=== PATIENT | male | born 1955 | race Caucasian/White ===

== ENCOUNTER 2016-09-19 20:16 | Emergency (ER) | payer BC ==
[~2016-09-19] VITALS: Ht 188 cm; Wt 118.8 kg
[~2016-09-19 20:16] MED LIST: ASPIRIN 81MG TA81 MG PO; ASPIRIN EC325 M1 PO; CLINORIL GENER200 MG PO; CRESTOR5 MG PO; CYCLOBENZAPRINE10 M1 PO; DIOVAN HCT 12.51 TAB PO; DOXAZOSIN MESYLA1 MG PO; DOXAZOSIN MESYLA2 MG PO; FLEXERIL10 MG PO; FLOMAX 0.4MG C0.4 MG PO; MEDROL 4MG. DOSE4 MG PO; MELOXICAM15 MG PO; NAPROSYN 500MG500 MG PO; NITROQUICK0.4 MG SL; PLAVIX75 MG PO; ROBAXIN-750750 MG PO; SIMVASTATIN80 MG PO; TOPROL XL 50MG50 MG PO
--- NOTE | 2016-09-19 21:05 | RADIOLOGY REPORT PS360 ---
CT HEAD WITHOUT CONTRAST CT BONE WINDOWS ORDERING PHYSICIAN : PATIENT AGE: 61 years GENDER: Male HISTORY: HIT IN HEAD PROCEDURE: Routine axial images head with brain & bone windows no contrast COMPARISON: None FINDINGS: No acute intracranial findings. No hemorrhage. No mass. No subdural nor extra-axial collection. Very Minor cerebral atrophy, age-appropriate. Ventricles and basal cisterns appear clear. Posterior fossa is unremarkable. CT Bone Windows: The skull is intact. No depressed skull fracture evident Mild/moderate Bilateral ethmoid sinusitis trace mucosal thickening sphenoid sinus. Maxillary sinuses not imaged Mastoid air cells and middle ear & IACs are satisfactory no significant findings. IMPRESSION: No acute intracranial findings.
--- NOTE | 2016-09-19 21:07 | Emergency Room Report ---
History of Present Illness Time Seen by [id number] Presenting Problem in Triage Pt arrived:Walked Presenting Problem:Patient was cutting trees yesterday. He states a limb hit him in the head and knocked him down. He denies loc, denies any n/v. Also states he has a "squeaking" sound in he left ear with every step he takes now. He went to [facility] and opted to drive back here for the CT of the head that they suggested. He lives here and loves this hospital. 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 N Clinical Suspician of Infection? N Mental Status: 1 - Regular (Normal Baseline) Sepsis Risk:Low Sepsis Risk Have you (or family members/close friends) recently traveled outside the [place]? N If Yes, where/when: Have you had exposure to infectious disease within the past month? N TB? Other? Specify: Source patient, RN notes reviewed, family, old records Exam Limitations no limitations Comment pt with acute head injury yesterday with no loc but has العلي and has buzzing to lt ear with talking and walking - no bleeding and no focal neuro sx Cardiac Chest Pain Chest pain indicative of cardiac No Timing/Duration this evening Severity moderate ALLERGIES Coded Allergies: No Known Allergies (09/19/16) Home Medications Active Scripts Methylprednisolone (Medrol Dose Frank) 4 MG PO UD #1 FRANK Prov: 03/17/15 Reported Medications Metoprolol Succinate Xl (Toprol Xl) 50 MG PO DAILY Clopidogrel Bisulfate (Plavix) 75 MG PO DAILY Hydrochlorothiazide/Valsarta (Diovan Hct 12.5 Mg-160 Mg) 1 TAB PO DAILY TAMSULOSIN HCL (Flomax 0.4MG) 0.4 MG PO QHS Doxazosin Mesylate 1 MG PO DAILY #45 Sulindac (Clinoril Generic 200MG Tab) 200 MG PO DAILY #180 Rosuvastatin Calcium (Crestor) 5 MG PO QHS #90 History Medical History General CAD? Yes Angina: Yes [place]: No Hypertension? Yes Hyperlipidemia? Yes CHF? No COPD? No Asthma? No Hernia? No Thyroid Problems? No Hypothyroidism? No CVA? No Seizures? No Diabetes? No UTI? No Stones? No GB Disease: No Hepatitis? No Cataracts? No Glaucoma? No MRSA? No TB? No Cancer? No Immunization Hx Ped.Immunizations UTD Yes DT/Tetanus 5-10 YRS Surgical Hx Previous Surgery?Y KNEE SHOULDER UMBILICAL HERNIA TRANSURETHRAL SURGERY HEART STENT 07/06 Family History Family Hx Diabetes No CAD Yes Hypertension Yes Hyperlipidemia Yes Cancer No TB No Social History Smoking Hx Smoker: Current Every Day Smoker Tobacco: Yes Type Cigarettes Packs/day < 1 Pack Alcohol Alcohol: Yes Drugs none Review of Systems All Other Systems Reviewed and Negative Constitutional denies fever Eyes denies drainage ENT see HPI. denies: ear pain, ear discharge, epistaxis, throat swelling. Respiratory denies cough, denies shortness of breath Cardiovascular denies chest pain, denies palpitations, denies syncope Gastrointestinal denies abdominal pain, denies diarrhea, denies vomiting Genitourinary denies: dysuria, frequency, hesitancy, hematuria. Musculoskeletal denies back pain, denies joint pain, denies neck pain Skin denies rash Psychiatric/Neurological denies headache, denies seizure Physical Exam Vital Signs Vital Signs Date Time Temp Pulse Resp B/P Pulse O2 O2 Flow FiO2 Ox Delivery Rate 09/19 2022 98.5 69 18 139/82 99 - WBC >12,000 or <4,000 or 10% bands? 2 or more SIRS Criteria Met? B/P:139/82 MAP:101 Creatinine >2.0? UA output<0.5ml/kg/hr for 2 hrs? Platelet count >100,000? Lactate >2.0mmol/1? INR >1.2 or PTT > than 60 sec? Evidence of Organ Dysfunction? Provider documented clinical suspician of infection? N Sepsis Criteria Count: 0 Sepsis Risk: Low Sepsis Risk General Appearance no apparent distress Eye Exam - bilateral eye PERRL, bilateral eye EOMI Ear, Nose, Throat abnormal TM (L) Neck supple Respiratory Status No: respiratory distress. 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 No Results/Orders Orders Procedure Date/time Status DIET-NOTHING BY MOUTH 09/[address] HEAD REQ 09/19 2038 Complete XRAY/CT/US XRAY/CT/US CT head CT interpretation by discussed w/radiologist Time results known: 2126 CT Results normal/NAD Departure Departure Time of Disposition 2119 Disposition DC Home or Self Care(routine) Clinical Impression Primary Impression: Concussion syndrome Secondary Impressions: OTITIC BAROTRAUMA, INITIAL ENCOUNTER Condition STABLE Referrals Jose D MONTGOMERY,Kirill Alcazar Patient Instructions DI for Barotrauma Additional Instructions use meds and see dr gagnon 100 pm Discharge Counseling Counseled pt/family regarding diagnosis, test results, medications/RX, follow up needs Prescriptions Current Visit Scripts Prednisone (Prednisone 20MG) 20 MG PO BID #10 TAB ED Critical Care Critical Care No at 2128
[2016-09-19] MEDS ORDERED: PREDNISONE 20MG20 MG PO (21:23)
[2016-09-19 21:34] VITALS: BP 128/72
== END 2016-09-19 21:35 | disposition home or self-care (01) ==
LOC: ER 20:16
DX: S06.0X0A Concussion without loss of consciousness, initial encounter (principal); W22.8XXA Striking against or struck by other objects, initial encounter; Y92.89 Other specified places as the place of occurrence of the external cause; T70.0XXA Otitic barotrauma, initial encounter; I25.10 Atherosclerotic heart disease of native coronary artery without angina pectoris; I10 Essential (primary) hypertension; Z72.0 Tobacco use